=== PATIENT | female | born 1955 | race Caucasian/White ===

== ENCOUNTER → 2017-12-07 | Day surgery (SDC) | payer BC ==
[2017-12-05 15:35] LABS: EOSINOPHILS # (AUTO) 0.3 (0.0-0.4); HEMATOCRIT 40.6 % (34.2-44.1); HEMOGLOBIN 13.2 g/dL (12.0-16.0); LYMPHOCYTES % 32.4 % (18.0-39.1); MEAN CORPUSCULAR HEMOGLOBIN 28.4 pg (28-32); MEAN CORPUSCULAR HGB CONC 32.5 g/dL (31-35); MEAN CORPUSCULAR VOLUME 87.3 fL (81-99); MONOCYTES # (AUTO) 0.3 (0.2-0.8); MONOCYTES % 5.5 % (4.4-11.3); NEUTROPHILS # (AUTO) 3.6 (2.1-6.9); NEUTROPHILS % 57.8 % (38.7-80.0); PLATELET COUNT 254 x10e3/uL (140-360); RED BLOOD COUNT 4.65 x10e6/uL (3.6-5.1); RED CELL DISTRIBUTION WIDTH 12.8 % (11.7-14.4)
--- NOTE | 2017-12-05 15:42 | Diagnostic Imaging Report ---
EXAMINATION: PA and lateral views of the chest. COMPARISON: None CLINICAL HISTORY: Preadmission evaluation, tunnel syndrome DISCUSSION: Lines/tubes: None. Lungs: The lungs are well inflated and clear. No pneumonia or pulmonary edema. Pleura: No pleural effusion or pneumothorax. Heart and mediastinum: The cardiomediastinal silhouette is normal. Bones and soft tissues: No acute bony abnormalities. IMPRESSION: No acute cardiopulmonary abnormalities. Signed by: Dr. Matias Coffman M.D. on 12/05/2017 3:39 PM
[2017-12-05 15:48] LABS: INR 0.9
[2017-12-05 15:49] LABS: PARTIAL THROMBOPLASTIN TIME 30.2 seconds (23.8-35.5)
[~2017-12-07] MED LIST: BUPIVACAINE HCL 0.5% INJ 30 ML VIAL INJ ONE; CALTRATE 600 W1 EACH; CEFAZOLIN SOD 1 GM VIAL ONE; CLARITIN10 M2; COQ-10100 MG; DEXAMETHASONE SOD PHOS INJ 4 MG/ML VIAL ONE; FENTANYL CITRATE/PF 100MCG/2 ML INJ ONE; FIBER; FOLIC ACID1 MG PO; GABAPENTIN300 MG PO; GAVISCON EXTRA355 ML; KETOROLAC TROMETHAMINE 30 MG/ML VIAL ONE; LEVOTHYROXINE50 MCG PO; MAGNESIUM; MEGA RED; MIDAZOLAM HCL 2 MG/2 ML VIAL ONE; MONTELUKAST SOD10 MG PO; MULTI-VITAMIN1 EACH; NEUPRO1 EAC1; ONDANSETRON HCL INJ 2 MG/ML VIAL ONE; POTASSIUM; PROPOFOL IV EMULSION 10 MG/ML 20 ML VIAL ONE; SEVOFLURANE INHAL SOLN 250 ML PEN BTL ONE; SUDAFED 12 HOU120 MG; TYLENOL; ZETIA10 MG PO
[2017-12-07 11:20] VITALS: BP 126/66
--- NOTE | 2017-12-07 12:51 | Operative Report ---
DATE OF PROCEDURE: December 07, 2017 PREOPERATIVE DIAGNOSIS: Right carpal tunnel syndrome. POSTOPERATIVE DIAGNOSIS: Right carpal tunnel syndrome. PROCEDURE: Right carpal tunnel release. ANESTHESIA: General. INDICATIONS: The patient is a woman who presents with right carpal tunnel syndrome and was taken to the operating room for a right carpal tunnel release. PROCEDURE: After the induction of general anesthesia, the patient was placed on the operating table in supine position with the right arm abducted over a hand table. The right hand, wrist and forearm were prepped and draped circumferentially in sterile fashion. A tourniquet was inflated over the upper arm. A small midline incision was created over the median palmar crease of the hand just distal to the distal flexor crease of the wrist. The subcutaneous fat was divided. The transverse carpal ligament was incised with a number 15C blade until the underlying median nerve came into view. As the psychological assistant retracted the skin edges, the transverse carpal ligament was divided proximally and distally until the full length of the ligament had been divided and the full length of median nerve was exposed and decompressed. The point of maximum compression appeared to be 3 cm distal to the distal flexor crease of the wrist where the ligament was at its thickest. More distally, the recurrent motor branch of the nerve was preserved within its fat pad. The wound was copiously irrigated with Bacitracin solution. Meticulous hemostasis was secured. The retractor was removed. The subcutaneous layer was closed with 3-0 Vicryl suture. The skin was closed with a 3-0 nylon suture in a horizontal mattress fashion. A dressing was applied. The patient was awakened, extubated and taken to the postanesthesia care unit in stable condition. No intraoperative complications were encountered. Estimated blood loss was minimal. Job#: [id number] EV
== END | disposition home or self-care (01) ==
LOC: OR 07:56
PROVIDERS: ATTEND Neurological Surgery
DX: G56.01 Carpal tunnel syndrome, right upper limb (principal); Z88.6 Allergy status to analgesic agent; J45.909 Unspecified asthma, uncomplicated; E78.5 Hyperlipidemia, unspecified; E03.9 Hypothyroidism, unspecified; R12 Heartburn; Z01.810 Encounter for preprocedural cardiovascular examination; Z01.812 Encounter for preprocedural laboratory examination; Z01.811 Encounter for preprocedural respiratory examination
CPT/HCPCS: 36415; 64721; 71046; 85025; 85610; 85730; 93005; J0690; J1100; J1885; J2250; J2405

== ENCOUNTER 2018-08-02 05:20 | Observation (INO) | payer BC ==
[2018-07-31 11:26] LABS: BASOPHILS % 0.3 % (0.0-1.0); EOSINOPHILS # (AUTO) 0.3 (0.0-0.4); EOSINOPHILS % 4.2 % (0.0-6.0); HEMATOCRIT 40.6 % (34.2-44.1); HEMOGLOBIN 13.2 g/dL (12.0-16.0); LYMPHOCYTES # (AUTO) 1.9 (1.0-3.2); LYMPHOCYTES % 25.7 % (18.0-39.1); MEAN CORPUSCULAR HEMOGLOBIN 28.3 pg (28-32); MEAN CORPUSCULAR HGB CONC 32.5 g/dL (31-35); MEAN CORPUSCULAR VOLUME 87.1 fL (81-99); MONOCYTES # (AUTO) 0.4 (0.2-0.8); MONOCYTES % 5.6 % (4.4-11.3); NEUTROPHILS # (AUTO) 4.8 (2.1-6.9); NEUTROPHILS % 63.8 % (38.7-80.0); PLATELET COUNT 276 x10e3/uL (140-360); RED BLOOD COUNT 4.66 x10e6/uL (3.6-5.1)
[2018-07-31 11:44] LABS: INR 0.93
[2018-07-31 11:45] LABS: PARTIAL THROMBOPLASTIN TIME 32.3 seconds (23.8-35.5)
[2018-07-31 11:51] LABS: ANION GAP 11.6 mmol/L (8-16); BLOOD UREA NITROGEN 16 mg/dL (7-26); BUN/CREATININE RATIO 22 (6-25); CALCIUM 9.4 mg/dL (8.4-10.2); CARBON DIOXIDE 27 mmol/L (22-29); CHLORIDE 105 mmol/L (98-107); CREATININE, SERUM 0.74 mg/dL (0.57-1.11); EST GLOMERULAR FILTRATION RATE > 60 ML/MIN (60-); GLUCOSE 112 mg/dL (74-118); POTASSIUM 4.6 mmol/L (3.5-5.1); SODIUM 139 mmol/L (136-145)
--- NOTE | 2018-07-31 12:06 | Diagnostic Imaging Report ---
EXAMINATION: CHEST 2 VIEWS INDICATION: ^PREOP ^[id number] ^1120 COMPARISON: 12/05/2018 FINDINGS: PA and lateral views TUBES and LINES: None. LUNGS: Lungs are well inflated. There is no evidence of pneumonia or pulmonary edema. PLEURA: No pleural effusion or pneumothorax. HEART AND MEDIASTINUM: The cardiomediastinal silhouette is unremarkable. BONES AND SOFT TISSUES: No acute osseous lesion. Soft tissues are unremarkable. UPPER ABDOMEN: No free air under the diaphragm. IMPRESSION: No acute thoracic abnormality. Signed by: Dr. Regis Mcclure MD on 07/31/2018 12:02 PM
[~2018-08-02] VITALS: Ht 160 cm; Wt 81.7 kg
[~2018-08-02 05:20] MED LIST changes: -BUPIVACAINE HCL 0.5% INJ 30 ML VIAL INJ ONE; -CEFAZOLIN SOD 1 GM VIAL ONE; -DEXAMETHASONE SOD PHOS INJ 4 MG/ML VIAL ONE; +DULCOLAX5 MG PO; -FENTANYL CITRATE/PF 100MCG/2 ML INJ ONE; -KETOROLAC TROMETHAMINE 30 MG/ML VIAL ONE; +LEVOTHYROXINE112 MCG PO; +MELATONIN3 M1 PO; +METAMUCIL FIBE3.4 GM PO; -MIDAZOLAM HCL 2 MG/2 ML VIAL ONE; +MUCINEX DM ER1 EACH PO; -ONDANSETRON HCL INJ 2 MG/ML VIAL ONE; -PROPOFOL IV EMULSION 10 MG/ML 20 ML VIAL ONE; -SEVOFLURANE INHAL SOLN 250 ML PEN BTL ONE; -TYLENOL; +TYLENOL PO
[2018-08-02] MEDS ORDERED: CEFAZOLIN SOD 1 GM/NS 50ML 50 ML IV ONE (06:04)
[2018-08-02] MEDS ORDERED: THROMBIN FOR SOLN 5,000 UNIT VIAL ONE (06:37)
[2018-08-02] MEDS ORDERED: BUPIVACAINE 0.5%/EPI 30 ML SDV INJ ONE (06:37)
[2018-08-02] MEDS ORDERED: GELATIN SPONGE 12-7MM ONE (06:38)
[2018-08-02] MEDS ORDERED: BACITRACIN 50,000 UNIT VIAL ONE (06:38)
[2018-08-02] MEDS ORDERED: BUPIVACAINE HCL 0.5% INJ 30 ML VIAL INJ ONE (07:01)
[2018-08-02] MEDS ORDERED: ACETAMINOPHEN 1000 MG/100 ML 100 ML IV ONE (07:26)
[2018-08-02] MEDS ORDERED: LIDOCAINE HCL (LTA) 4 ML SOLN ONE (07:26)
[2018-08-02] MEDS ORDERED: IBUPROFEN 800MG/ 250ML 250 ML IV ONE (07:27)
[2018-08-02] MEDS ORDERED: HYDROMORPHONE 2MG/ML 2 MG/ML ML IV PRN (09:15)
[2018-08-02] MEDS ORDERED: ONDANSETRON HCL INJ 2MG/ML 2ML 2 MG/ML VIAL IV PRN (09:15)
[2018-08-02] MEDS ORDERED: MORPHINE SULFATE 5 MG/ML VIAL IM PRN (09:15)
[2018-08-02] MEDS ORDERED: CARISOPRODOL 350 MG TAB PO PRN (09:15)
[2018-08-02] MEDS ORDERED: OXYCODONE/ACETAMINOPHEN 5-325 1 EACH TABLET PO PRN (09:15)
[2018-08-02] MEDS ORDERED: GUAIFENESIN 600MG/DEXTROMETHORPHAN 30MG TABSR PO PRN (09:15)
[2018-08-02] MEDS ORDERED: ZOLPIDEM TARTRATE 5 MG TAB PO PRN (09:15)
[2018-08-02] MEDS ORDERED: ACETAMINOPHEN 325 MG TAB PO PRN (09:15)
[2018-08-02] MEDS ORDERED: CEPACOL SORE THROAT LOZENGES PO PRN (09:15)
[2018-08-02] MEDS ORDERED: MAGNESIUM/ALUMINUM/SIMETHICONE 30 ML UDC PO PRN (09:15)
[2018-08-02] MEDS ORDERED: PROMETHAZINE HCL (IM) 25 MG/ML VIAL IM PRN (09:15)
[2018-08-02] MEDS ORDERED: GABAPENTIN 300 MG CAP PO SCH (10:00)
--- NOTE | 2018-08-02 10:10 | NUR ---
patient arrived to unit via stretcher, alert and oriented and in no distress. call arriaga within reach and bed in lowest position.
[2018-08-02 10:23] VITALS: BP 122/56
[2018-08-02 10:45] VITALS: BP 122/56
[2018-08-02 10:48] VITALS: BP 122/56
[2018-08-02] MEDS ORDERED: MONTELUKAST SODIUM 10 MG TAB PO SCH (11:00)
[2018-08-02] MEDS ORDERED: BISACODYL 5 MG TAB EC PO PRN (11:00)
[2018-08-02] MEDS ORDERED: EZETIMIBE 10 MG TAB PO SCH (11:00)
[2018-08-02] MEDS: LACTATED RINGER'S 1,000 ML IV SCH ×3 (11:01→20:49)
--- NOTE | 2018-08-02 11:02 | NUR ---
patient refuses to take hospital medications as she states she has her own. educated the patient on medication and she verbalized understanding.
--- NOTE | 2018-08-02 12:34 | Operative Report ---
DATE OF PROCEDURE: 08/02/2018 SURGEON: Gray Li MD PREOPERATIVE DIAGNOSES: 1. C6-7 spondylosis with radiculopathy. 2. Left carpal tunnel syndrome. POSTOPERATIVE DIAGNOSES: 1. C6-7 spondylosis with radiculopathy. 2. Left carpal tunnel syndrome. PROCEDURES: 1. C6-7 anterior cervical diskectomy and microsurgical osteophyte resection and allograft fusion, 62537. 2. Preparation of MTF corticocancellous allograft, 10618. 3. C6-7 anterior cervical plating with Synthes DPM plate, 38197. 4. Left carpal tunnel release. ANESTHESIA: General. INDICATIONS: The patient is a 63-year-old woman, who presents with C6-7 spondylosis, symptomatic with neck pain and left-sided cervical radiculopathy. In addition, she has left carpal tunnel syndrome. She was taken to the operating room for simultaneous treatment of those problems. PROCEDURE IN DETAIL: After induction of general anesthesia, the patient was placed on the operating table in the supine position. The right side of the neck was prepped and draped in sterile fashion. A small transverse incision was created on the right side of the neck superimposed on the C6-7 disk space as determined by fluoroscopy. The platysma was divided in line with the incision. A subplatysmal dissection was carried out and avascular plane of dissection was developed medial to sternocleidomastoid muscles followed medial to the carotid sheath to the anterior border of the cervical spine. The deep cervical fascia was opened. The esophagus was retracted to the left. The attachments of longus colli muscles to the anterolateral aspects of vertebral bodies of C6 and C7 were divided. The anterior longitudinal ligament was resected. [place] posts were inserted into C6 and C7. The [place] distractor was used to distract the disk space. The anterior annulus of the disk was incised with a #11 blade. The contents of the disk were thoroughly evacuated with angled curettes and pituitary rongeurs. The large posterior osteophytes were meticulously drilled with a 2 mm cutting bur on a high-speed drill until they were completely removed. The posterior annulus of the disk, chronically herniated disk material, and the posterior longitudinal ligament were resected layer by layer until the dura was fully exposed and decompressed. The medial aspects of the uncinate processes were resected bilaterally to further expose any compressed origins of the corresponding nerve roots. After satisfactory decompression had been achieved, the endplates were prepared for fusion. The disk space was sized and found to be 8 mm in height. A piece of MTF corticocancellous allograft measuring 8 mm in thickness was selected and loaded onto a Synthes DPM plate. The construct was then inserted into the C6-7 disk space under distraction and fluoroscopic guidance. The distraction was released and distraction posts were removed. The plate was then screwed to the endplates of C6 and C7 with two pairs of 14 mm screws. All screws were locked and excellent construct was obtained. The wound was copiously irrigated with bacitracin solution. Meticulous hemostasis was secured. Retractor was removed. The platysma was closed with 3-0 Vicryl sutures. The skin was closed with 4-0 Monocryl sutures in subcuticular fashion. Steri-Strips and dressing were applied. The drapes were removed. The left arm was abducted over a hand table. The left hand, wrist, and forearm were prepped and draped circumferentially in sterile fashion. A tourniquet was inflated over the upper arm to 250 mmHg. A small midline incision was created over the median palmar crease of the left hand just distal to the distal flexor crease of the wrist. The subcutaneous fat was divided. The transverse carpal ligament was identified and incised with a #15C blade until the underlying median nerve came into view. As the furniture removalist's assistant retracted the skin edges, the transverse carpal ligament was divided proximally and distally until the full length with ligament had been divided and the full length of the median nerve was exposed and decompressed within the carpal tunnel. The point of maximal compression of the nerve appeared to be about 2 cm distal to the distal flexor crease of the wrist where the ligament was at its thickest. More distally, the recurrent motor branch of the nerve was preserved within its fat pad. The wound was irrigated with bacitracin solution. The subcutaneous layer was closed with 3-0 Vicryl suture. The skin was closed with a 3-0 nylon suture in a horizontal mattress fashion. The tourniquet was removed. The skin was infiltrated with lidocaine. The hand was wrapped. The patient was awakened, extubated, and taken to the postanesthesia care unit in stable condition. No intraoperative complications were encountered. Estimated blood loss was 20 mL. Gray Li MD PP/PILAR /[id number]
[2018-08-02] MEDS: CEFAZOLIN SOD 1 GM/NS 50ML 50 ML IV SCH ×2 (14:43→21:02)
[2018-08-02 16:39] VITALS: BP 129/60
[2018-08-02] MEDS ORDERED: GLYCOPYRROLATE INJ 1MG/ 5 ML SYR ONE (18:37)
[2018-08-02] MEDS ORDERED: LIDOCAINE HCL 2% LOCAL INJ 5 ML SDV VIAL INJ ONE (18:37)
[2018-08-02] MEDS ORDERED: ROCURONIUM BROMIDE 10 MG/ML 5ML VIAL ONE (18:37)
[2018-08-02] MEDS ORDERED: LIDOCAINE HCL 2% JELLY 5 ML TUBE ONE (18:37)
[2018-08-02] MEDS ORDERED: EPHEDRINE SULFATE INJ 50 MG/10 ML SYR ONE (18:37)
[2018-08-02] MEDS ORDERED: ONDANSETRON HCL INJ 2MG/ML 2ML 2 MG/ML VIAL ONE (18:37)
[2018-08-02] MEDS ORDERED: PROPOFOL IV EMULSION 10 MG/ML 20 ML VIAL ONE (18:37)
[2018-08-02] MEDS ORDERED: NEOSTIGMINE 5 MG/5ML SYR ONE (18:37)
[2018-08-02] MEDS ORDERED: SEVOFLURANE INHAL SOLN 250 ML PEN BTL ONE (18:37)
[2018-08-02] MEDS ORDERED: DEXAMETHASONE SOD PHOS INJ 4 MG/ML VIAL ONE (18:37)
--- NOTE | 2018-08-02 18:40 | NUR ---
rounded with night guard nurse, patient aware of change and in no distress. call arriaga within reach and bed in lowest position
[2018-08-02] MEDS ORDERED: FENTANYL CITRATE/PF 100MCG/2 ML INJ ONE (18:52)
[2018-08-02] MEDS ORDERED: MIDAZOLAM HCL 2 MG/2 ML VIAL ONE (18:52)
[2018-08-02 20:00] VITALS: BP 115/68
[2018-08-02] MEDS ORDERED: MELATONIN 3 MG TAB PO SCH (21:00)
[2018-08-03 04:00] VITALS: BP 118/57
[2018-08-03] MEDS: CEFAZOLIN SOD 1 GM/NS 50ML 50 ML IV SCH (05:04)
--- NOTE | 2018-08-03 05:56 | Diagnostic Imaging Report ---
Exam: Cervical spine 2 views History: pain Comparison: None. Findings: No fracture or malalignment. Anterior cervical discectomy and fusion of C6-C7 with low profile construct and interbody cage. Additional multilevel degenerative disc disease facet arthrosis, mild. Impression: Intact anterior cervical discectomy and fusion of C6-C7. No complication. Signed by: Dr. Matias Coffman M.D. on 08/03/2018 5:53 AM
[2018-08-03] MEDS ORDERED: LEVOTHYROXINE SODIUM 112 MCG TAB PO SCH (06:00)
[2018-08-03 08:01] VITALS: BP 112/53
[2018-08-03 08:10] VITALS: BP 112/53
--- NOTE | 2018-08-03 08:16 | NUR ---
patient stated she took all morning meds which she had her own
[2018-08-03] MEDS ORDERED: MULTIVITAMINS/MINERALS TAB PO SCH (09:00)
[2018-08-03] MEDS ORDERED: FOLIC ACID 1 MG TAB PO SCH (09:00)
--- NOTE | 2018-08-03 09:31 | NUR ---
patient discharged home, prescription and discharge instruction (with handout in the chart )given. Dressing changed on anterior neck incision area, steri strip intact there, prescription given, IV canula removed with tip intact, no ss of infiltration noted, he aware of f/up appointments. transported via wheelchair to [facility], not in any distress or pain.
[2018-08-03] MEDS ORDERED: NORCO 7.5-3251 EACH PO (10:14)
== END 2018-08-03 10:50 | disposition home or self-care (01) ==
LOC: OR 05:20 → PACU V 09:21 → IMCU 10:19
PROVIDERS: ADMIT Neurological Surgery; ATTEND Neurological Surgery
DX: M47.22 Other spondylosis with radiculopathy, cervical region (principal); G56.02 Carpal tunnel syndrome, left upper limb; E03.9 Hypothyroidism, unspecified; J45.909 Unspecified asthma, uncomplicated; K21.9 Gastro-esophageal reflux disease without esophagitis; Z01.810 Encounter for preprocedural cardiovascular examination; Z01.812 Encounter for preprocedural laboratory examination; Z01.811 Encounter for preprocedural respiratory examination; Z88.8 Allergy status to other drugs, medicaments and biological substances
CPT/HCPCS: 20931; 22551; 22845; 36415; 64721; 71046; 72040; 80048; 85025; 85610; 85730; 86850; 86900; 88304; 93005; C1713 ×2; C9359; G0378 ×2; J0131; J0690; J1100; J2001 ×2; J2250; J2270; J2405; J2704; J3490; J7121; 77003

== ENCOUNTER → 2018-09-03 | Outpatient (CLI) | payer BC ==
[~2018-09-03] MED LIST changes: +NORCO 7.5-3251 EACH PO
--- NOTE | 2018-09-03 14:39 | Diagnostic Imaging Report ---
Radiographs of the cervical spine - 4 views with flexion and extension HISTORY: Pain COMPARISON: 08/03/2018 FINDINGS: Bones: No acute displaced fracture. Osseous alignment is within normal limits. Joints: Patient is status post anterior fusion at C6/7 with intervertebral body spacer material. The surgical hardware is intact without evidence of failure or loosening. No subluxation on the flexion or extension images. Soft tissues: The soft tissues appear unremarkable. IMPRESSION: Patient is status post anterior fusion at C6/7 with intervertebral body spacer material. The surgical hardware is intact without evidence of failure or loosening. No subluxation on the flexion or extension images. Signed by: Dr. Kendrick Francisco M.D. on 09/03/2018 2:36 PM
== END ==
LOC: RAD 13:35
PROVIDERS: ATTEND Neurological Surgery
DX: M50.20 Other cervical disc displacement, unspecified cervical region (principal); Z98.1 Arthrodesis status
CPT/HCPCS: 72050